=== PATIENT | female | born 1950 | race Caucasian/White ===

== ENCOUNTER 2017-05-31 09:21 | Inpatient (IN) | payer MEDICARE ==
[2017-05-31] VITALS (10 sets, daily range): BP systolic 121–178; BP diastolic 48–76; PULSE 83–101; RESP 16–22; TEMP 96.8–98; O2SAT 93–98
[~2017-05-31] VITALS: Ht 154.9 cm; Wt 105.5 kg
[~2017-05-31 09:21] MED LIST: ATOR10TA PO; AZAT50 PO; BUME1TAB PO; CYMB60CA PO; DILT180C PO; GEMF600T PO; LISI-363 PO; NOVONP2 SQ; NOVORP2 SQ; OMEP20CA5 PO; PRAM1 PO; PREG25 PO; VITA200017 PO; [UNRECOGNIZED DRUG - CODE] PO
--- NOTE | 2017-05-31 09:47 | PD ---
HPI Chief Complaint: Respiratory Symptoms Time Seen by Provider: 09:44 Travel History International Travel<30 days: No Contact w/Intl Traveler<30days: No Traveled to known affect area: No History of Present Illness HPI Patient states that she had a previous bout of shortness of breath back in February in [place] which was diagnosed as congestive heart failure, she had a heart cath also although she states that she was not stented she was told that she had a an DE. Also was told that her heart was not pumping so strongly but she does not recall what the percentage of ejection fraction was. Patient states that today she had an acute worsening of her shortness of breath, denies any chest pain or chest pressure currently. However she stated that laying flat and activity made her shortness of breath worse. Sitting up and leaning 90 of forward seem to improve her shortness of breath slightly. Patient did not denies any associated factors such as fever, productive cough, nausea, vomiting , diarrhea, abdominal pain, back pain, chest pain. 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 Previous history of sleep apnea on CPAP, GERD, ulcerative colitis, patient has had previous surgeries cholecystectomy, tubal ligation, hysterectomy PFSH Past Medical History Hx Anticoagulant Therapy: Yes (asa 81mg) Cancer: No Cardiovascular Problems: Yes (htn on meds, irregular heart rate, DE, chf) Cerebrovascular Accident: Yes (tia) Diabetes: Yes (type 2) Endocrine: Yes Glaucoma: No Genitourinary: No Hepatitis: No Hiatal Hernia: Yes Hypertension: Yes Immune Disorder: Yes (LUPUS) Musculoskeletal: Yes (ARTHRITIS) Neurologic: Yes (NEUROPATHY LEGS/ FEET, RESTLESS LEG SYND) Psychiatric: No Reproductive: No Respiratory: Yes (SLEEP APNEA/ CPAP) Thyroid Disease: No Past Surgical History Abdominal Surgery: Yes (CHOLECYSTECTOMY) AICD: No Gynecologic Surgery: Yes (TUBAL LIG., HYSTERECTOMY) Hysterectomy: Yes Joint Replacement: No Pacemaker: No Social History Alcohol Use: No Tobacco Use: No Substance Use: No Allergies-Medications (Allergen,Severity, Reaction): Coded Allergies: penicillin G (Unverified Allergy, Severe, RASH, 05/31/17) tizanidine (Verified Allergy, Severe, sob, 05/31/17) Reported Meds & Prescriptions Reported Meds & Active Scripts Active Reported Calcium Citrate 250 Mg Calcium Tab 250 Mg PO DAILY [Ultra Multi Vit] Furosemide 40 Mg Tab 40 Mg PO DAILY Aspirin Children's (Aspirin) 81 Mg Chew 81 Mg CHEW DAILY Metformin (Metformin HCl) 1,000 Mg Tab 1,000 Mg PO BIDPC Atorvastatin (Atorvastatin Calcium) 10 Mg Tab 10 Mg PO HS Lisinopril 20 Mg Tab 20 Mg PO BID Lyrica (Pregabalin) 100 Mg Cap 100 Mg PO TID Spironolactone 25 Mg Tab 25 Mg PO DAILY Pramipexole (Pramipexole Dihydrochloride) 1 Mg Tab 1 Mg PO DAILY Glipizide 10 Mg Tab 10 Mg PO BIDAC Take 30 minutes before a meal Azathioprine 50 Mg Tab 50 Mg PO DAILY Hazardous agent use appropriate precautions for handling and disposal. Duloxetine DR (Duloxetine HCl) 60 Mg Capdr 60 Mg PO DAILY Carvedilol 25 Mg Tab 25 Mg PO DAILY Review of Systems General / Constitutional: No: Fever Eyes: No: Visual changes HENT: No: Headaches Cardiovascular: No: Chest Pain or Discomfort Respiratory: Positive: Cough Gastrointestinal: No: Abdominal Pain Genitourinary: No: Dysuria Musculoskeletal: No: Pain Skin: No Rash Neurologic: No: Weakness Psychiatric: No: Depression Endocrine: No: Polydipsia Hematologic/Lymphatic: No: Easy Bruising Physical Exam Narrative GENERAL: SKIN: Warm and dry. HEAD: Atraumatic. Normocephalic. EYES: Pupils equal and round. No scleral icterus. No injection or drainage. ENT: No nasal bleeding or discharge. Mucous membranes pink and moist. NECK: Trachea midline. No JVD. CARDIOVASCULAR: Regular rate and rhythm. RESPIRATORY: No accessory muscle use. Clear to auscultation. Breath sounds equal bilaterally. GASTROINTESTINAL: Abdomen soft, non-tender, nondistended. MUSCULOSKELETAL: Extremities without clubbing, cyanosis, or edema. No obvious deformities. Bilateral pitting edema approximately 2+ NEUROLOGICAL: Awake and alert. No obvious cranial nerve deficits. Motor grossly within normal limits. Five out of 5 muscle strength in the arms and legs. Normal speech. PSYCHIATRIC: Appropriate mood and affect; insight and judgment normal. Data Data Last Documented VS Vital Signs Date Time Temp Pulse Resp B/P (MAP) Pulse Ox O2 Delivery O2 Flow Rate FiO2 05/31/17 10:16 16 97 Nasal Cannula 2.00 05/31/17 09:57 89 05/31/17 09:30 97.9 Orders Orders Complete Blood Count With Diff (05/31/17 10:07) Comprehensive Metabolic Panel (05/31/17 10:07) B-Type Natriuretic Peptide (05/31/17 10:07) Act Partial Throm Time (Ptt) (05/31/17 10:07) Prothrombin Time / Inr (Pt) (05/31/17 10:07) Ckmb (Isoenzyme) Profile (05/31/17 10:07) Troponin I (05/31/17 10:07) Influenzae A/B Antigen (05/31/17 10:07) Iv Access Insert/Monitor (05/31/17 10:07) Electrocardiogram (05/31/17 10:07) Ecg Monitoring (05/31/17 10:07) Oximetry (05/31/17 10:07) Oxygen Administration (05/31/17 10:07) Chest, Pa & Lat (05/31/17 10:07) Sodium Chloride 0.9% Flush (Ns Flush) (05/31/17 10:15) CKMB (05/31/17 10:00) CKMB% (05/31/17 10:00) Labs Laboratory Tests Test 05/31/17 10:00 White Blood Count 9.1 TH/MM3 Red Blood Count 4.22 MIL/MM3 Hemoglobin 12.4 GM/DL Hematocrit 36.2 % Mean Corpuscular Volume 85.7 FL Mean Corpuscular Hemoglobin 29.4 PG Mean Corpuscular Hemoglobin Concent 34.3 % Red Cell Distribution Width 14.4 % Platelet Count 263 TH/MM3 Mean Platelet Volume 8.6 FL Neutrophils (%) (Auto) 76.3 % Lymphocytes (%) (Auto) 16.8 % Monocytes (%) (Auto) 5.7 % Eosinophils (%) (Auto) 0.9 % Basophils (%) (Auto) 0.3 % Neutrophils # (Auto) 7.0 TH/MM3 Lymphocytes # (Auto) 1.5 TH/MM3 Monocytes # (Auto) 0.5 TH/MM3 Eosinophils # (Auto) 0.1 TH/MM3 Basophils # (Auto) 0.0 TH/MM3 CBC Comment DIFF FINAL Differential Comment Prothrombin Time 10.6 SEC Prothromb Time International Ratio 1.0 RATIO Activated Partial Thromboplast Time 23.7 SEC Blood Urea Nitrogen 16 MG/DL Creatinine 0.86 MG/DL Random Glucose 240 MG/DL Total Protein 7.0 GM/DL Albumin 3.3 GM/DL Calcium Level 8.3 MG/DL Alkaline Phosphatase 115 U/L Aspartate Amino Transf (AST/SGOT) 13 U/L Alanine Aminotransferase (ALT/SGPT) 15 U/L Total Bilirubin 0.7 MG/DL Sodium Level 140 MEQ/L Potassium Level 4.0 MEQ/L Chloride Level 106 MEQ/L Carbon Dioxide Level 25.3 MEQ/L Anion Gap 9 MEQ/L Estimat Glomerular Filtration Rate 66 ML/MIN Total Creatine Kinase 116 U/L Creatine Kinase MB 1.7 NG/ML Troponin I 0.13 NG/ML B-Type Natriuretic Peptide 295 PG/ML [facility] Medical Decision Making Medical Screen Exam Complete: Yes Emergency Medical Condition: Yes Medical Record Reviewed: Yes Interpretation(s) EKG shows normal sinus rhythm with frequent monofocal PVCs patient also has inverted T waves on 3 and aVF Differential Diagnosis CHF exacerbation versus pulmonary edema versus pleural effusion versus pneumonia versus influenza Narrative Course CBC shows no leukocytosis, no anemia, normal platelet count, and no major left shift. Coagulation profile is within normal limits Complete metabolic profile reveals normal electrolytes. Elevated random glucose of 240. Normal liver functions, normal lipase, normal CK-MB however an elevated troponin of 0.13 with an elevated beta natruretic peptide of 295 consistent with CHF exacerbation with cardiac ischemia Chest x-ray is consistent with cardiomegaly and pulmonary edema Critical Care Narrative CRITICAL CARE NOTE: With evaluation of the patient, labs, EKG, receipt of radiologic studies, administration of medications, reevaluation the patient and discussion of the patient with the admitting physicians, the total critical care time was [45] minutes. Time to perform other separately billable procedures was not included in the critical care time. Diagnosis Primary Impression: pulmonary edema with hypoxemia Additional Impression: cardiac strain causing elevated troponin Lenny Aranda MD May 31, 2017 09:47
[2017-05-31] MEDS ORDERED: ATOR10TA15 PO (10:12)
[2017-05-31] MEDS ORDERED: [UNRECOGNIZED DRUG - OTHER] (10:12)
[2017-05-31] MEDS ORDERED: SPIR25TA PO (10:12)
[2017-05-31] MEDS ORDERED: LISI-515 PO (10:12)
[2017-05-31] MEDS ORDERED: AZAT50 PO (10:12)
[2017-05-31] MEDS ORDERED: DULO1CAP3 PO (10:12)
[2017-05-31] MEDS ORDERED: GLIP10TA6 PO (10:12)
[2017-05-31] MEDS ORDERED: CALC250T PO (10:12)
[2017-05-31] MEDS ORDERED: METF1000 PO (10:12)
[2017-05-31] MEDS ORDERED: FURO40TA PO (10:12)
[2017-05-31] MEDS ORDERED: CARV25TA PO (10:12)
[2017-05-31] MEDS ORDERED: ASPI81CH7 CHEW (10:12)
[2017-05-31] MEDS ORDERED: LYRI100C PO (10:12)
[2017-05-31] MEDS ORDERED: PRAM1TAB PO (10:12)
[2017-05-31] MEDS ORDERED: SODIUM CHLORIDE 0.9% FLUSH 10 ML FLUSH IVF PRN (10:15)
[2017-05-31 10:29] LABS: BASOPHIL % 0.3 % (0.0-2.0); EOSINOPHIL # 0.1 TH/MM3 (0-0.4); EOSINOPHIL % 0.9 % (0.0-4.0); HEMATOCRIT 36.2 % (35.0-46.0); HEMOGLOBIN 12.4 GM/DL (11.6-15.3); LYMPH % 16.8 % (9.0-44.0); LYMPHOCYTE # 1.5 TH/MM3 (1.0-4.8); MEAN CELL VOLUME 85.7 FL (80.0-100.0); MEAN CORPUSCULAR HEMOGLOBIN 29.4 PG (27.0-34.0); MEAN CORPUSCULAR HGB CONC 34.3 % (32.0-36.0); MEAN PLATELET VOLUME 8.6 FL (7.0-11.0); MONO % 5.7 % (0.0-8.0); MONOCYTE # 0.5 TH/MM3 (0-0.9); NEUT % 76.3 % (16.0-70.0); PLATELET COUNT 263 TH/MM3 (150-450); RED BLOOD COUNT 4.22 MIL/MM3 (4.00-5.30); RED CELL DISTRIBUTION WIDTH 14.4 % (11.6-17.2); WHITE BLOOD COUNT 9.1 TH/MM3 (4.0-11.0)
--- NOTE | 2017-05-31 10:42 | RADRPT ---
EXAM DATE/TIME: 05/31/2017 10:26 [place] COMPARISON: No previous studies available for comparison. INDICATIONS : Short of breath MEDICAL HISTORY : Congestive heart failure. Diabetes mellitus type II. Lupus. SURGICAL HISTORY : None. ENCOUNTER: Initial ACUITY: 1 day PAIN SCORE: 0/10 LOCATION: Bilateral chest FINDINGS: The lungs are clear. Mild hyperinflation is evident. The heart is minimally enlarged. Minimal inte rstitial edema is present. There is no pleural effusion. The portion of the bony skeleton visualized is unremarkable. CONCLUSION: Cardiomegaly with mild failure. Hyperinflation could mask significant failure. Nathan Carbajal MD FACR on May 31, 2017 at 10:40 Board Certified Radiologist. This report was verified electronically.
[2017-05-31 10:45] LABS: CHLORIDE 106 MEQ/L (98-107); SODIUM (NA) 140 MEQ/L (136-145)
[2017-05-31 10:48] LABS: CALCIUM 8.3 MG/DL (8.5-10.1); PROTHROMBIN TIME - PATIENT 10.6 SEC (9.8-11.6)
[2017-05-31 10:49] LABS: ALBUMIN 3.3 GM/DL (3.4-5.0); BICARBONATE 25.3 MEQ/L (21.0-32.0); BLOOD UREA NITROGEN 16 MG/DL (7-18); GLUCOSE,RANDOM 240 MG/DL (74-106)
[2017-05-31 10:52] LABS: ALT (GPT) 15 U/L (10-53); AST (GOT) 13 U/L (15-37); CREATININE 0.86 MG/DL (0.50-1.00); GLOMERULAR FILTRATION RATE 66 ML/MIN (>89)
[2017-05-31 10:53] LABS: TOTAL BILIRUBIN ADULT 0.7 MG/DL (0.2-1.0)
[2017-05-31 10:55] LABS: ALKALINE PHOSPHATASE 115 U/L (45-117)
[2017-05-31 10:57] LABS: TROPONIN I 0.13 NG/ML (0.02-0.05)
[2017-05-31] MEDS ORDERED: ENOXAPARIN SODIUM 80 MG/0.8 ML SYRINGE SQ ONE (11:45)
[2017-05-31] MEDS ORDERED: FUROSEMIDE 100 MG/10 ML VIAL IVP ONE (11:45)
[2017-05-31] MEDS ORDERED: NITROGLYCERIN 2% OINT 1 GM PACKET TOP ONE (11:45)
--- NOTE | 2017-05-31 13:18 | EKG ---
Date Performed: 05/31/2017 Time Performed: 09:55:16 PTAGE: 67 years EKG: Sinus rhythm WITH FREQUENT VENTRICULAR PREMATURE COMPLEXES IN A BIGEMINAL PATTERN MINIMAL VOLTAGE CRITERIA FOR LV H, CONSIDER NORMAL VARIANT POSSIBLE ANTERIOR MYOCARDIAL INFARCTION ABNORMAL RHYTHM ECG NO PREVIOUS TRACING DOCTOR: Alberto Lopez Interpretating Date/Time 05/31/2017 13:17:16
[2017-05-31 15:09] LABS: MAGNESIUM 1.6 MG/DL (1.5-2.5)
[2017-05-31 15:17] LABS: TROPONIN I 0.13 NG/ML (0.02-0.05)
[2017-05-31] MEDS: FUROSEMIDE 40 MG/4 ML VIAL IVP SCH (17:39)
[2017-05-31] MEDS ORDERED: DEXTROSE 50% IN WATER 50 ML VIAL(D50) IV PUSH PRN (17:45)
[2017-05-31] MEDS ORDERED: GLUCAGON 1 MG/ML VIAL OTHER PRN (17:45)
[2017-05-31] MEDS ORDERED: ONDANSETRON HCL 4 MG/2 ML VIAL IV PUSH PRN (20:00)
[2017-05-31 20:56] LABS: TROPONIN I 0.12 NG/ML (0.02-0.05)
[2017-05-31] MEDS: ACETAMINOPHEN 325 MG TAB PO PRN (21:06)
[2017-05-31] MEDS: metFORMIN HCL 500 MG TAB PO SCH (21:07)
[2017-05-31] MEDS: glipiZIDE 10 MG TAB PO SCH (21:07)
[2017-05-31] MEDS: INSULIN ASPART SUPPLEMENTAL SCALE SQ SCH (22:34)
[2017-05-31] MEDS: PRAMIPEXOLE DIHYDROCHLORIDE 1 MG TAB PO SCH (22:35)
[2017-05-31] MEDS: ATORVASTATIN 10 MG TAB PO SCH (22:35)
[2017-06-01] VITALS (8 sets, daily range): BP systolic 106–147; BP diastolic 58–86; PULSE 65–94; RESP 14–18; TEMP 96.6–98; O2SAT 91–95
[2017-06-01 06:47] LABS: TROPONIN I 0.14 NG/ML (0.02-0.05)
[2017-06-01] MEDS: glipiZIDE 10 MG TAB PO SCH ×2 (06:51→17:30)
[2017-06-01] MEDS: ACETAMINOPHEN 325 MG TAB PO PRN (06:54)
[2017-06-01 07:48] LABS: BICARBONATE 27.7 MEQ/L (21.0-32.0); CALCIUM 8.6 MG/DL (8.5-10.1)
[2017-06-01 07:52] LABS: CREATININE 0.9 MG/DL (0.50-1.00)
[2017-06-01] MEDS: PREGABALIN 100 MG CAP PO SCH ×3 (08:48→17:30)
[2017-06-01] MEDS: PRAMIPEXOLE DIHYDROCHLORIDE 1 MG TAB PO SCH (08:48)
[2017-06-01] MEDS: INSULIN ASPART SUPPLEMENTAL SCALE SQ SCH ×4 (08:48→20:51)
[2017-06-01] MEDS: ASPIRIN 81 MG CHEW TAB CHEW SCH (08:48)
[2017-06-01] MEDS: CARVEDILOL 12.5 MG TAB PO SCH (08:49)
[2017-06-01] MEDS: DULoxetine HCl DR 60 MG CAP PO SCH (08:49)
[2017-06-01] MEDS: CALCIUM CARBONATE 1.25 GM (CA 500 MG) TAB PO SCH (08:49)
[2017-06-01] MEDS: FUROSEMIDE 40 MG/4 ML VIAL IVP SCH (08:49)
[2017-06-01] MEDS: SPIRONOLACTONE 25 MG TAB PO SCH (08:49)
[2017-06-01] MEDS: azaTHIOprine 50 MG TAB PO SCH (08:49)
[2017-06-01] MEDS: metFORMIN HCL 500 MG TAB PO SCH ×2 (08:49→17:30)
[2017-06-01] MEDS ORDERED: ENOXAPARIN SODIUM 80 MG/0.8 ML SYRINGE SQ SCH (09:00)
[2017-06-01] MEDS ORDERED: FUROSEMIDE 40 MG TAB PO SCH (09:00)
[2017-06-01] MEDS ORDERED: POTASSIUM CHLORIDE 20 MEQ CONTROLLED RELEASE TAB PO ONE (10:00)
--- NOTE | 2017-06-01 11:18 | HHI.PR ---
Subjective Remarks Feeling better this morning. Some nausea and dry heaves 3 pm yesterday, no more "fluttering". Objective Vitals Vital Signs Date Time Temp Pulse Resp B/P (MAP) Pulse Ox O2 Delivery O2 Flow Rate FiO2 06/01/17 09:48 18 06/01/17 09:04 94 21 06/01/17 08:00 97.3 68 14 147/81 (103) 94 06/01/17 07:54 18 06/01/17 04:00 98.0 89 18 147/86 (106) 95 06/01/17 00:00 98.0 90 18 128/73 (91) 95 05/31/17 21:00 101 05/31/17 20:33 93 21 05/31/17 20:00 98.0 91 20 121/69 (86) 97 05/31/17 16:16 96 21 05/31/17 15:30 96.8 84 20 163/76 (105) 93 05/31/17 15:10 96 160/48 (85) 93 05/31/17 11:54 90 22 145/62 (89) 98 Nasal Cannula 2.00 06/01/17 06/01/17 06/02/17 15:00 23:00 07:00 Intake Total 40 ml Balance 40 ml Intake Oral 40 ml Result Diagram: 05/31/17 1000 06/01/17 0450 Imaging Last Impressions Chest X-Ray 05/31/17 1007 Signed Impressions: Service Date/Time: Wednesday, May 31, 2017 10:26 - CONCLUSION: Cardiomegaly with mild failure. Hyperinflation could mask significant failure. Nathan Carbajal MD FACR Objective Remarks In bed , off oxygen, looks comfortable lungs clear to auscultation heart sounds distant but regular abdomen globose ext no edema stasis changes A/P Problem List: (1) CHF (congestive heart failure) ICD Codes: I50.9 - Heart failure, unspecified Status: Acute Plan: chf clinically improved with iv diuretics will change to po correct potassium on juana inhibitor (2) Elevated troponin ICD Codes: R74.8 - Abnormal levels of other serum enzymes Plan: elevation of troponin with low ckmb per patient she had nstemi in dec in [place] with radial heart catherization and recommendation for pacemaker defibrillator trying to get notes, echo results pending cardiology consult placed on coreg asa (3) Diabetes type 2, uncontrolled ICD Codes: E11.65 - Type 2 diabetes mellitus with hyperglycemia Status: Chronic Plan: 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 last hgba1c was 9.5 on lyrica and cymbalta stable cont glipizide metformin, diabetic diet and sliding scale (4) Hypertension ICD Codes: I10 - Essential (primary) hypertension Status: Chronic Plan: continue home medications (5) Hyperlipidemia ICD Codes: E78.5 - Hyperlipidemia, unspecified Status: Chronic Plan: on atorvastatin 10 mg check lipid profile (6) SLE (systemic lupus erythematosus) ICD Codes: M32.9 - Systemic lupus erythematosus, unspecified Status: Chronic Plan: con imuran Problem Qualifiers (1) Diabetes type 2, uncontrolled: (2) Hypertension: Qualified Codes: I10 - Essential (primary) hypertension Ree Ayala MD Jun 01, 2017 11:18
--- NOTE | 2017-06-01 11:44 | MH ---
cc: Ree Ayala MD DATE OF ADMISSION: 05/31/2017 ADMITTING DIAGNOSIS: Congestive heart failure, elevated troponin. HISTORY OF PRESENT ILLNESS: Ms. Jones is a very pleasant 67-year-old female who states that she came to the emergency room for increasing shortness of breath. She states that she had yesterday, while on the plane, returning from [facility], she started feeling what she felt like was a fluttering in her chest and some difficulty breathing. She also says her symptoms continued and she was exhausted when she got home. She went straight to bed, which is not typical for her. She was not really able to lie flat to breath and to sleep. She states this morning, when she woke up, her shortness of breath persisted and she became concerned and she came to the emergency room. Apparently, in February of this year, while visiting members near [place], she had episodes of shortness of breath and was admitted to [facility] and there had an WI. She says, at that time, they did a heart catheterization. She points to her wrist, so it looks like it was radial and she was also told that her heart was weak and she needed a pacemaker, which she declined. She wanted to followup with her local software sales, Dr. Alcantar. He did see her and told her that they would monitor her cardiac status. I was able to review some of her records from [facility]. I do not have the catheterization, but it looks like at that point she had severe left ventricular systolic dysfunction by echo, with an EF of 25-30%. She says this episode of shortness of breath and difficulty breathing was much worse than the one in February. She denies any actual lower extremity edema. She does say that she retains fluid frequently and she has needed diuretics before. She says this time, she did not notice that she had any increased fluid in her feet. She denies any actual chest pain of pressure. She just describes that fluttering across her chest. She does say that she has also had problems, in the prior couple of days, she did have a little bit of postnasal drip and soreness in the upper part of her throat, but no real cough. She denies any history of COPD, smoking or asthma. PAST MEDICAL HISTORY: Significant for, as stated, non-ST WI in February, hypertension, diabetes. She does have nephropathy and neuropathy with her diabetes. She does have CKD too. Her last GFR in her [facility] chart was 63. She has had reflux in the past, but has not had that in quite awhile now. She has hyperlipidemia, obesity. She is status post gastric sleeve. She does have a history of sleep apnea, but she says that she has not needed the CPAP in quite a while. She also has a history of lupus and ulcerative colitis. PAST SURGICAL HISTORY: Includes cholecystectomy, hysterectomy, tubal ligation and the gastric sleeve in 2016. She has also had knee surgery in the past. ALLERGIES: INCLUDE PENICILLIN AND TIZANIDINE. CURRENT MEDICATIONS: Include atorvastatin 10 milligrams at bedtime, Coreg 25 milligrams once a day, lisinopril 20 milligrams twice a day, spironolactone 25 milligrams daily, baby aspirin, Lyrica 100 milligrams three times a day, duloxetine 60 milligrams daily, pramipexole 1 milligrams at bedtime, calcium citrate 250 milligrams daily, furosemide 40 milligrams daily, metformin 1000 milligrams twice a day, glipizide 10 milligrams twice a day. She also takes azathioprine 50 milligrams daily and multivitamins. HABITS: She denies smoking or alcohol consumption. SOCIAL HISTORY: She is actually recently , last January. Her passed from pancreatic cancer. She has a daughter who she visits and she appears to be close to. REVIEW OF SYSTEMS: See History of Present Illness. She says that because of the gastric sleeve, she is only able to eat small amounts at a time. Otherwise, she has what sounds like a dumping syndrome. She has not had any reflux in a long time, since she had the gastric sleeve surgery. She has not had any diarrhea. She denies any kind of abdominal pain. No recent cough. No nasal congestion, just a sore throat. She has been urinating well. She does say that she does retain fluid. She said she has retained up to 50 pound of fluid at a time. She will get lower extremity edema at times. She has the burning and the pain in her legs for which she takes the Lyrica and Cymbalta. PHYSICAL EXAMINATION: VITAL SIGNS: Temperature 96.8, pulse is 84, respirations 20, blood pressure is 163/76, pulse oximetry is 93% on room air. GENERAL: She is alert and oriented. She is very pleasant and conversant. Does not appear to be in any acute distress at this point. HEENT: She is normocephalic, atraumatic. EM is intact. She has a short neck. She is overweight. She has dentures in place. She does have a little bit of hyperemia in her oropharynx, but I see no exudate. PULMONARY: Her lungs actually sound clear to me. I am not hearing any rhonchi, rales or wheezes. CARDIOVASCULAR: Her heart is regular. I hear no murmurs. ABDOMEN: . EXTREMITIES: Really show no edema. She does have venous stasis dermatitis changes on both lower extremities. LABORATORY DATA: Done when she came in showed a white count of 9.1, hemoglobin 12.4, hematocrit 36.2, platelet count 263. Sodium 140, potassium 4, BUN 16, creatinine 0.86. GFR was 66. Random glucose 240. Calcium was 8.3, AST was 13, with an ALT of 15, CK was 1.7. Her troponin was 0.13. BNP was 295. Total protein was 7, albumin 3.3. The influenza test was negative. IMAGING:: They did do a chest x-ray on her that showed cardiomegaly with mild failure. They felt that hyperinflation could mask significant failure. STUDIES: She did have an EKG that was already read by the software sales as sinus rhythm, with frequent ventricular premature complexes and bigeminal pattern. Minimal voltage criteria for LVH. Considered normal variant. Possible anterior myocardial infarction. ASSESSMENT AND PLAN: 1. This is a 67-year-old female, presenting in congestive heart failure. Per record review, it sounds like she has had at least in February an acute myocardial infarction with a low ejection fraction. At this point, she has been admitted. She has been initially diuresed in the emergency room. When I have seen her, I have already ordered another dose of diuretics. She tells me she is feeling much more comfortable now. She is not as shortness of breath. At this point, we will continue monitoring her troponins and give her 1 more dose of the diuretics tomorrow morning. She is already on an ANGUS inhibitor. I have already ordered an echocardiogram. It sounds like Dr. Alcantar has adjusted her medication. I asked her whether or not her Coreg was twice a day. She tells me that she has got her on it once a day. We will continue at that dose at least for now, depending on things develop. I did discuss with her that if her echocardiogram or troponins did go up or there were any significant change, if she wanted the doctors here at [place], software sales here to see her. When she was in [place], she actually did not want there to do any procedures on her. She was adamant that it be Dr. Alcantar. She said she was agreeable to that if that was necessary. 2. Diabetes. Her last hemoglobin, reviewing the chart, was actually 9.5. We will continue with her metformin and her glipizide for now and continue with her sliding scale. Continue with the diabetic diet. In terms of the hypertension, she will be on the lisinopril and the Coreg. I was a little bit concerned about the sleep apnea. She is not wearing the CPAP, but she says that it is not something that has actually needed or used for a while. We will see how her saturations do during the evening. In terms of her lupus and history of ulcerative colitis, we will continue on her . We will also continue her medications for her neuropathy. Further recommendations as the case develops. Ree Ayala MD CAS/JEFFREY , 07:07 PM , 08:18 PM
--- NOTE | 2017-06-01 13:49 | ECHRPT ---
Indication: HEART FAILURE CONCLUSIONS Technically very difficult study making assessment of left ventricular function suboptimal. On some views, left ventricular function appears low normal to mildly reduced with ejection fraction roughly estima sheri at 45-50%. Other views suggest more severe left ventricular systolic dysfunction. Regional wall motio n abnormalities cannot be excluded. If clinically indicated, recommend radionuclide ventriculography for better assessment of left ventricular function. [id number] mitral valve regurgitation. There is trace tricuspid valve regurgitation. The estimated pulmonary arterial pressure is 20 mmHg. BP: 147 / 86 HR: 89 Rhythm: Sinus MEASUREMENTS (Male / Female) Normal Values Technical Quality:Fair 2D ECHO LV Diastolic Diameter PLAX 5.7 cm 4.2 - 5.9 / 3.9 - 5.3 cm LV Systolic Diameter PLAX 5.2 cm IVS Diastolic Thickness 1.1 cm 0.6 - 1.0 / 0.6 - 0.9 cm LVPW Diastolic Thickness 1.1 cm 0.6 - 1.0 / 0.6 - 0.9 cm LV Relative Wall Thickness 0.4 RV Internal Dim ED PLAX 1.9 cm LVOT Diameter 2.0 cm Aortic Root Diameter 3.0 cm LA Systolic Diameter LX 3.0 cm 3.0 - 4.0 / 2.7 - 3.8 cm M-MODE AV Cusp Separation MM 1.6 cm DOPPLER AV Peak Velocity 128.0 cm/s AV Peak Gradient 6.6 mmHg AV Mean Gradient 4.0 mmHg AV Velocity Time Integral 20.8 cm LVOT Peak Velocity 85.0 cm/s LVOT Peak Gradient 2.9 mmHg LVOT Velocity Time Integral 15.1 cm AV Area Cont Eq vti 2.3 cm AV Area Cont Eq pk 2.1 cm Mitral E Point Velocity 60.2 cm/s Mitral A Point Velocity 77.0 cm/s Mitral E to A Ratio 0.8 LV E' Lateral Velocity 4.7 cm/s Mitral E to LV E' Lateral Ratio 12.9 LV E' Septal Velocity 4.3 cm/s Mitral E to LV E' Septal Ratio 14.0 TR Peak Velocity 159.0 cm/s TR Peak Gradient 10.1 mmHg Right Atrial Pressure 10.0 mmHg Pulmonary Artery Systolic Pressu 20.1 mmHg Right Ventricular Systolic Press 20.1 mmHg PV Peak Velocity 54.9 cm/s PV Peak Gradient 1.2 mmHg FINDINGS LEFT VENTRICLE Technically very difficult study making assessment of left ventricular function suboptimal. On some views, left ventricular function appears low normal to mildly reduced with ejection fraction roughly estima sheri at 45-50%. Other views suggest more severe left ventricular systolic dysfunction. Regional wall motio n abnormalities cannot be excluded. If clinically indicated, recommend radionuclide ventriculography for better assessment of left ventricular function. RIGHT VENTRICLE Normal right ventricular size and systolic function. LEFT ATRIUM The left atrial size is upper normal. RIGHT ATRIUM The right atrial size is normal. ATRIAL SEPTUM The interatrial septum not well visualized. AORTA The aortic root and proximal ascending aorta are normal in size on limited imaging. MITRAL VALVE [id number] mitral valve regurgitation. AORTIC VALVE Aortic valve sclerosis is present. The aortic valve is not well visualized. TRICUSPID VALVE There is trace tricuspid valve regurgitation. The estimated pulmonary arterial pressure is 20 mmHg. PULMONARY VALVE No pulmonary valve regurgitation or stenosis. VESSELS The inferior vena cava is normal in size. PERICARDIUM No pericardial effusion. Abhishek Kyle MD (Electronically Signed) Final Date:01 June 2017 13:47
[2017-06-01 14:11] LABS: BICARBONATE 28.8 MEQ/L (21.0-32.0); CALCIUM 8.8 MG/DL (8.5-10.1)
[2017-06-01 14:28] LABS: CREATININE 1.1 MG/DL (0.50-1.00)
[2017-06-01] MEDS: ATORVASTATIN 10 MG TAB PO SCH (20:48)
[2017-06-02] VITALS: BP 132/75; PULSE 92; RESP 17; TEMP 98.2; O2SAT 95
[2017-06-02 08:00] VITALS: BP 121/70; PULSE 69; RESP 18; TEMP 98.2; O2SAT 92
--- NOTE | 2017-06-02 08:00 | PD.CONS ---
HPI Consult Requested By Primary Care Physician Martín Winkler M.D. History of Present Illness 67-year-old female with a past medical history of CHF/nonischemic cardiomyopathy , DM with neuropathy, HTN, HLD, morbid obesity, lupus presented with shortness of breath. The patient presented with shortness of breath on 05/31 and was found to have mild edema on chest x-ray. She has been given diuretics and reports good urine output and shortness of breath has resolved. She denies any leg swelling. She denies any chest pain. She had a single episode of palpitations a few weeks ago, no other episodes. She had a hospitalization in February where she was found to have nonischemic cardiomyopathy. She had a catheter at that time that showed mild nonobstructive CAD. Her EF was 25-30% at the time and has been medically managed. She is followed by cardiology, Dr. Alcantar, in [facility]. She states that she can put on water weight quite quickly and has not been checking daily weights. She endorses compliance with fluid and sodium restrictions. Review of Systems Negative except as stated in the history of present illness Past Family Social History Allergies: Coded Allergies: penicillin G (Unverified Allergy, Severe, RASH, 05/31/17) tizanidine (Verified Allergy, Severe, sob, 05/31/17) Past Medical History CHF/nonischemic cardiomyopathy DM with neuropathy HTN HLD morbid obesity lupus Past Surgical History Cholecystectomy Hysterectomy Tubal ligation Gastric sleeve Knee surgery Reported Medications Reported Meds & Active Scripts Active Reported Calcium Citrate 250 Mg Calcium Tab 250 Mg PO DAILY [Ultra Multi Vit] Furosemide 40 Mg Tab 40 Mg PO DAILY Aspirin Children's (Aspirin) 81 Mg Chew 81 Mg CHEW DAILY Metformin (Metformin HCl) 1,000 Mg Tab 1,000 Mg PO BIDPC Atorvastatin (Atorvastatin Calcium) 10 Mg Tab 10 Mg PO HS Lisinopril 20 Mg Tab 20 Mg PO BID Lyrica (Pregabalin) 100 Mg Cap 100 Mg PO TID Spironolactone 25 Mg Tab 25 Mg PO DAILY Pramipexole (Pramipexole Dihydrochloride) 1 Mg Tab 1 Mg PO DAILY Glipizide 10 Mg Tab 10 Mg PO BIDAC Take 30 minutes before a meal Azathioprine 50 Mg Tab 50 Mg PO DAILY Hazardous agent use appropriate precautions for handling and disposal. Duloxetine DR (Duloxetine HCl) 60 Mg Capdr 60 Mg PO DAILY Carvedilol 25 Mg Tab 25 Mg PO DAILY Active Ordered Medications Current Medications Medications (Trade) Dose Ordered Sig/Robb Route Start Time Stop Time Status Last Admin (NS Flush) 2 ml UNSCH PRN IVF 05/31/17 10:15 06/01/17 08:47 (D50w (Vial) Inj) 50 ml UNSCH PRN IV PUSH 05/31/17 17:45 (Glucagon Inj) 1 mg UNSCH PRN OTHER 05/31/17 17:45 (NovoLOG SUPPLEMENTAL SCALE) 1 ACHS SLIDING SCALE SQ 05/31/17 21:00 06/01/17 20:51 (Aspirin Chew) 81 mg DAILY CHEW 06/01/17 09:00 06/01/17 08:48 (Lipitor) 10 mg HS PO 05/31/17 21:00 06/01/17 20:48 (Imuran) 50 mg DAILY PO 06/01/17 09:00 06/01/17 08:49 (Coreg) 25 mg DAILY PO 06/01/17 09:00 06/01/17 08:49 (Cymbalta Dr) 60 mg DAILY PO 06/01/17 09:00 06/01/17 08:49 (Glucotrol) 10 mg BIDAC PO 05/31/17 18:45 06/01/17 17:30 (Glucophage) 1,000 mg BIDPC PO 05/31/17 18:45 06/01/17 17:30 (Mirapex) 1 mg DAILY PO 05/31/17 21:00 06/01/17 08:48 (Lyrica) 100 mg TID PO 06/01/17 09:00 06/01/17 17:30 (Aldactone) 25 mg DAILY PO 06/01/17 09:00 06/01/17 08:49 (Oscal) 500 mg DAILY PO 06/01/17 09:00 06/01/17 08:49 (Tylenol) 650 mg Q4H PRN PO 05/31/17 18:45 06/01/17 06:54 (Zofran Inj) 4 mg Q6H PRN IV PUSH 05/31/17 20:00 06/01/17 08:47 (Lasix) 40 mg DAILY PO 06/02/17 09:00 Social History No smoking or alcohol consumption Physical Exam Vital Signs Vital Signs Date Time Temp Pulse Resp B/P (MAP) Pulse Ox O2 Delivery O2 Flow Rate FiO2 06/02/17 00:00 98.2 92 17 132/75 (94) 95 06/01/17 23:00 72 06/01/17 20:00 96.8 91 17 116/58 (77) 91 06/01/17 18:30 18 06/01/17 16:00 96.6 65 16 118/79 (92) 94 06/01/17 12:00 96.7 75 16 106/81 (89) 91 06/01/17 09:04 94 21 06/01/17 08:00 94 06/01/17 08:00 97.3 68 14 147/81 (103) 94 06/01/17 07:54 18 Physical Exam GENERAL: Well-developed well-nourished. In no acute distress. Morbidly obese. NECK: No carotid bruits. No JVD. CARDIOVASCULAR: Regular rate and rhythm. No murmur appreciated. RESPIRATORY: No accessory muscle use. Clear to auscultation. Breath sounds equal bilaterally. MUSCULOSKELETAL: No clubbing or cyanosis. No edema. NEUROLOGICAL: Awake and alert. Normal speech. Laboratory Laboratory Tests Test 06/01/17 13:30 Blood Urea Nitrogen 19 Creatinine 1.10 Random Glucose 252 Calcium Level 8.8 Sodium Level 136 Potassium Level 4.0 Chloride Level 98 Carbon Dioxide Level 28.8 Anion Gap 9 Estimat Glomerular Filtration Rate 49 Date/Time Source Procedure Growth Status 05/31/17 10:00 Nasal Washing Influenza Types A,B Antigen (BOBBY) - Final NEGATIVE FOR FLU A AND B ANTIGEN.... Complete Result Diagram: 05/31/17 1000 06/01/17 1330 Imaging Last Impressions Chest X-Ray 05/31/17 1007 Signed Impressions: Service Date/Time: Wednesday, May 31, 2017 10:26 - CONCLUSION: Cardiomegaly with mild failure. Hyperinflation could mask significant failure. Nathan Carbajal MD FACR Assessment and Plan Assessment and Plan 67-year-old female with a past medical history of CHF/nonischemic cardiomyopathy , DM with neuropathy, HTN, HLD, morbid obesity, lupus who presented with CHF exacerbation CHF exacerbation: Patient has been given IV diuretics and has symptomatically improved to baseline and is back on her home diuretics currently. Continue medical management. Patient educated on sodium and fluid restrictions as well as daily weights. Nonischemic cardiomyopathy: Previous EF 25-30 % in February, EF has improved to 45-50% on this admission. Continue carvedilol and lisinopril. Elevated troponin: Flat, nonischemic, likely secondary to CHF. No chest pain and nonobstructive CAD on cath in February. No further ischemic workup indicated at this time. No further cardiology workup indicated at this time, recommend medical management for CHF. We will sign off at this time, please call with any questions. Discussed Condition With Pt, Ibrahima Sinclair Jun 02, 2017 08:00
[2017-06-02 08:15] VITALS: PULSE 106
[2017-06-02] MEDS: SPIRONOLACTONE 25 MG TAB PO SCH (08:23)
[2017-06-02] MEDS: PREGABALIN 100 MG CAP PO SCH ×2 (08:23→12:18)
[2017-06-02] MEDS: CARVEDILOL 12.5 MG TAB PO SCH (08:23)
[2017-06-02] MEDS: ASPIRIN 81 MG CHEW TAB CHEW SCH (08:24)
[2017-06-02] MEDS: glipiZIDE 10 MG TAB PO SCH (08:24)
[2017-06-02] MEDS: azaTHIOprine 50 MG TAB PO SCH (08:24)
[2017-06-02] MEDS: INSULIN ASPART SUPPLEMENTAL SCALE SQ SCH ×2 (08:24→12:22)
[2017-06-02] MEDS: CALCIUM CARBONATE 1.25 GM (CA 500 MG) TAB PO SCH (08:24)
[2017-06-02] MEDS: metFORMIN HCL 500 MG TAB PO SCH (08:24)
[2017-06-02] MEDS: PRAMIPEXOLE DIHYDROCHLORIDE 1 MG TAB PO SCH (08:26)
[2017-06-02] MEDS: DULoxetine HCl DR 60 MG CAP PO SCH (08:27)
[2017-06-02] MEDS ORDERED: FUROSEMIDE 40 MG TAB PO SCH (09:00)
--- NOTE | 2017-06-02 10:32 | HHI.PR ---
Subjective Remarks no new complaints, groggy,breathing is better Objective Vitals Vital Signs Date Time Temp Pulse Resp B/P (MAP) Pulse Ox O2 Delivery O2 Flow Rate FiO2 06/02/17 08:00 98.2 69 18 121/70 (87) 92 06/02/17 00:00 98.2 92 17 132/75 (94) 95 06/01/17 23:00 72 06/01/17 20:00 96.8 91 17 116/58 (77) 91 06/01/17 18:30 18 06/01/17 16:00 96.6 65 16 118/79 (92) 94 06/01/17 12:00 96.7 75 16 106/81 (89) 91 Result Diagram: 05/31/17 1000 06/01/17 1330 Imaging Last Impressions Chest X-Ray 05/31/17 1007 Signed Impressions: Service Date/Time: Wednesday, May 31, 2017 10:26 - CONCLUSION: Cardiomegaly with mild failure. Hyperinflation could mask significant failure. Nathan Carbajal MD FACR Objective Remarks in chair looks sleepy lungs clear to auscultation heart sounds distant but regular abdomen globose ext no edema stasis changes A/P Problem List: (1) CHF (congestive heart failure) ICD Codes: I50.9 - Heart failure, unspecified Status: Resolved Plan: chf clinically improved on po diuretics on juana inhibitor seen by cardiology this am call placed to Dr Lopez to discuss echo (2) Elevated troponin ICD Codes: R74.8 - Abnormal levels of other serum enzymes Plan: elevation of troponin with low ckmb per patient she had nstemi in feb in [place] with radial heart catherization and recommendation for pacemaker defibrillator felt to be due to chf per cardiology notes on coreg , asa (3) Diabetes type 2, uncontrolled ICD Codes: E11.65 - Type 2 diabetes mellitus with hyperglycemia Status: Chronic Plan: 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 last hgba1c was 9.5 on lyrica and cymbalta stable cont glipizide metformin, diabetic diet and sliding scale (4) Hypertension ICD Codes: I10 - Essential (primary) hypertension Status: Chronic Plan: continue home medications (5) Hyperlipidemia ICD Codes: E78.5 - Hyperlipidemia, unspecified Status: Chronic Plan: on atorvastatin 10 mg check lipid profile (6) SLE (systemic lupus erythematosus) ICD Codes: M32.9 - Systemic lupus erythematosus, unspecified Status: Chronic Plan: con imuran Assessment and Plan plan to discharge home later today once discussed with cardiology Problem Qualifiers (1) CHF (congestive heart failure): (2) Diabetes type 2, uncontrolled: (3) Hypertension: Qualified Codes: I10 - Essential (primary) hypertension Ree Ayala MD Jun 02, 2017 10:32
[2017-06-02 12:00] VITALS: BP 118/70; PULSE 69; RESP 18; TEMP 98; O2SAT 93
[2017-06-02 15:00] VITALS: PULSE 84
--- NOTE | 2017-06-02 18:57 | EKG ---
Date Performed: 06/01/2017 Time Performed: 13:44:30 PTAGE: 67 years EKG: Sinus rhythm WITH FREQUENT VENTRICULAR PREMATURE COMPLEXES BORDERLINE LEFT AXIS DEVIATION MINIMAL VOLTAGE CRITERI A FOR LVH, CONSIDER NORMAL VARIANT NONSPECIFIC T-WAVE ABNORMALITY ABNORMAL RHYTHM ECG Since the prior tracing, there has been no significant change PREVIOUS TRACING : 05/31/2017 09.55 DOCTOR: Campos Pratt Interpretating Date/Time 06/02/2017 18:55:16
== END 2017-06-02 16:21 | disposition home or self-care (01) | DRG 291 ==
LOC: PHED 09:21 → PHEDA 12:21 → OBSVTOIN 14:17 → PH3A 15:15
PROVIDERS: ADMIT Legal Medicine; ATTEND Legal Medicine
DX: I13.0 Hypertensive heart and chronic kidney disease with heart failure and stage 1 through stage 4 chronic kidney disease, or unspecified chronic kidney disease (principal); I50.23 Acute on chronic systolic (congestive) heart failure; E11.21 Type 2 diabetes mellitus with diabetic nephropathy; E11.42 Type 2 diabetes mellitus with diabetic polyneuropathy; E11.22 Type 2 diabetes mellitus with diabetic chronic kidney disease; M32.9 Systemic lupus erythematosus, unspecified; I42.9 Cardiomyopathy, unspecified; K51.90 Ulcerative colitis, unspecified, without complications; Z68.41 Body mass index [BMI] 40.0-44.9, adult; K95.09 Other complications of gastric band procedure; E66.01 Morbid (severe) obesity due to excess calories; G25.81 Restless legs syndrome; N18.9 Chronic kidney disease, unspecified; K21.9 Gastro-esophageal reflux disease without esophagitis; E11.65 Type 2 diabetes mellitus with hyperglycemia; G47.30 Sleep apnea, unspecified; I25.2 Old myocardial infarction; E78.5 Hyperlipidemia, unspecified; K91.1 Postgastric surgery syndromes; I25.10 Atherosclerotic heart disease of native coronary artery without angina pectoris; R74.8 Abnormal levels of other serum enzymes; R09.02 Hypoxemia; M19.90 Unspecified osteoarthritis, unspecified site; Z79.84 Long term (current) use of oral hypoglycemic drugs; Z86.73 Personal history of transient ischemic attack (TIA), and cerebral infarction without residual deficits; Z88.0 Allergy status to penicillin; Z98.84 Bariatric surgery status
CPT/HCPCS: 71046; 80048; 80053; 82550; 82552; 82948; 83735; 83880; 84484; 85025; 85610; 85730; 87804; 93005; 93306; 96374; J1650; J1815; J1940; J2405; J7500